=== PATIENT | female | born 1995 | race Caucasian/White ===

== ENCOUNTER 2016-10-15 21:13 | Observation (INO) ==
[2016-10-15 21:50] LABS: Bilirubin,Urine Negative (Negative); Blood,Urine Trace (Negative); Clarity,Urine Cloudy (Clear); Color,Urine Yellow (Yellow); Glucose,Urine (UA) Normal (Normal); Ketones,Urine Negative (Negative); Leukocyte Esterase,Urine Small (Negative); Nitrite,Urine Negative (Negative); Protein,Urine Negative (Neg-Trace); Specific Gravity,Urine 1.015 (1.010-1.025); Urobilinogen,Urine Normal (Normal)
[2016-10-15 22:06] LABS: Bacteria,Urine Moderate per hpf (None-Few); Hyaline Casts,Urine None Seen per lpf (None-Few); RBC,Urine 0-3 per hpf (0-3); Squamous Epithelial Cell,Urine Many per lpf (None-Few)
--- NOTE | 2016-10-15 22:09 | OB/GYN Progress Note ---
Date of Encounter: 10/16/16 Time of Encounter: 21:58 - Assessment and Plan (1) Abdominal cramping, generalized Status: Acute Patient's cramping and back pain likely related to multiparity and current twin gestation. We will check the following: Vaginosis panel fibronectin unable to be obtained d/t cercical length US 2 days prior ( 2.5cm) Urinalysis Subjective - Subjective Principal diagnosis: Abdominal Cramping Interval history: , 1, 3 (1 set of twins, 1 miscarriage, 1 [place]) currently at 29 weeks gestation with another set of twins presents to labor and delivery with complaint of abdominal cramping and low back pain that started earlier today. Patient states she has also been having "cervical pain" and a clear mucousy vaginal discharge since yesterday. She denies vaginal bleeding. Her cramping and back pain comes and goes and she has not taken anything for it. She denies fever. She states that her current has been without complications although she does state that she recently finished a course of metronidazole about 2 weeks ago for a vaginal infection. She is taking a vitamin and vitamin B12 and denies taking other medications during this . I examined this patient and my medical decision-making was reviewed with the ROAD TESTER/PA/Advanced Practice Nurse/Resident Physician. I agree with the documented findings, disposition and treatment plan as described except to the extent set forth below. Objective - Vital Signs Vital Signs: Intake and Output 10/15/16 10/15/16 10/15/16 07:59 15:59 23:59 Other: Weight 78.8 kg Patient Weight 10/15/16 23:59 Weight 78.8 kg - Exam FHR: category 1 (x2) FHR comments: 130s baseline x2 Auscultation: bilateral: normal Abdomen: Present: gravid, tenderness (Suprapubic tenderness. Patient's heart rate is regular, no murmurs, rubs or gallops)
[2016-10-15 22:55] LABS: Candida DNA ***DETECTED*** (Not Detect); Gardnerella DNA Not Detected (Not Detect); Trichomonas DNA Not Detected (Not Detect)
[2016-10-16] MEDS ORDERED: Nitrofurantoin (BID) 100 MG CAPSULE PO SCH (08:00)
[2016-10-16] MEDS ORDERED: METRONIDAZOLE 500 MG PO SCH (09:00)
[2016-10-16] MEDS ORDERED: PRENATAL PO SCH (09:00)
[2016-10-16] MEDS ORDERED: DHA PO SCH (09:00)
[2016-10-16] MEDS ORDERED: [UNRECOGNIZED DRUG - OTHER] PO SCH (09:00)
[2016-10-16] MEDS ORDERED: DSS PO SCH (09:00)
[2016-10-16] MEDS ORDERED: IRON PO SCH (09:00)
[2016-10-16] MEDS ORDERED: Terconazole Vag SUPP 80 MG SUPP.VAG VG SCH (21:00)
== END 2016-10-15 23:37 | disposition home or self-care (01) ==
LOC: 1NENULAB
PROVIDERS: ADMIT Obstetrics & Gynecology; ATTEND Obstetrics & Gynecology

== ENCOUNTER 2016-10-31 21:40 | Observation (INO) ==
--- NOTE | 2016-10-31 22:35 | OB/GYN Progress Note ---
Date of Encounter: 10/31/16 Time of Encounter: 22:32 - Assessment and Plan (1) 31 weeks gestation of Current Visit: Yes Status: Acute Pt presents with c/o decreased movement at home. Now with active movement x 2 and RNST x 2. (2) Twin gestation in third trimester Current Visit: Yes Status: Acute Qualifiers: Multiple gestation type: dichorionic and diamniotic Qualified Code(s): O30.043 - Twin , dichorionic/diamniotic, third trimester Subjective - Subjective Principal diagnosis: twins, decreased movement Interval history: 21yo female with twins at 31w6d gestation presents with decreased movement. No UC's, No VB or LOF. Now on L&D she is doing much better. Objective - Vital Signs Vital Signs: Intake and Output 10/31/16 10/31/16 10/31/16 07:59 15:59 23:59 Other: Weight 80.6 kg Patient Weight 10/31/16 23:59 Weight 80.6 kg - Exam FHR: category 1, other (x 2)
== END 2016-10-31 22:36 | disposition home or self-care (01) ==
LOC: 1NENULAB
PROVIDERS: ADMIT Obstetrics & Gynecology; ATTEND Obstetrics & Gynecology

== ENCOUNTER 2016-11-22 10:56 | Observation (INO) ==
[2016-11-22 12:18] LABS: Bilirubin,Urine Negative (Negative); Blood,Urine Negative (Negative); Clarity,Urine Cloudy (Clear); Color,Urine Yellow (Yellow); Glucose,Urine (UA) Normal (Normal); Ketones,Urine Negative (Negative); Leukocyte Esterase,Urine Large (Negative); Nitrite,Urine Negative (Negative); PH,Urine 6.5 pH Units (5.0-8.0); Protein,Urine Negative (Neg-Trace); Specific Gravity,Urine 1.005 (1.010-1.025); Urobilinogen,Urine Normal (Normal)
[2016-11-22 12:20] LABS: Bacteria,Urine Many per hpf (None-Few); Hyaline Casts,Urine None Seen per lpf (None-Few); RBC,Urine 0-3 per hpf (0-3); Squamous Epithelial Cell,Urine Many per lpf (None-Few); WBC,Urine 30-50 per hpf (0-3)
[2016-11-22] MEDS ORDERED: RINGERS LACTATED IVC PRN (13:14)
[2016-11-22] MEDS ORDERED: Ringers Solution, Lactated 1,000 ML ONE (13:14)
[2016-11-22 13:36] LABS: Basophils # 0.1 K/mcL (0.0-0.2); Basophils % 0.4 %; Eosinophils # 0.2 K/mcL (0.0-0.6); Eosinophils % 0.9 %; Hematocrit 33.3 % (35.3-44.9); Hemoglobin 11.1 g/dL (11.5-15.4); Immature Granulocytes % 1.6 % (0-4); Lymphocytes # 2.9 K/mcL (0.6-4.6); Lymphocytes % 17.1 %; Mean Corpuscular HGB Conc 33.3 g/dL (31.6-35.5); Mean Corpuscular Hemoglobin 27.1 pg (28.0-33.3); Mean Corpuscular Volume 81.2 fL (83.0-100.0); Mean Platelet Volume 13.6 fL (9.4-12.4); Monocytes # 1.1 K/mcL (0.0-1.3); Monocytes % 6.6 %; Neutrophils # 12.5 K/mcL (1.6-8.9); Platelet Count 207 K/mcL (140-400); Red Cell Distribution Width 13.9 % (11.5-14.5); Segmented Neutrophils % 73.4 %
--- NOTE | 2016-11-22 14:46 | OB/GYN Progress Note ---
Date of Encounter: 11/22/16 Time of Encounter: 14:45 - Assessment and Plan (1) and not yet delivered in third trimester Current Visit: Yes Status: Acute (2) 35 weeks gestation of Current Visit: Yes Status: Acute (3) Candidiasis of female genitalia Current Visit: Yes Status: Acute We will discharge patient home with prescription for terconazole 7 (4) Twin gestation in third trimester Current Visit: No Status: Acute Qualifiers: Multiple gestation type: dichorionic and diamniotic Qualified Code(s): O30.043 - Twin , dichorionic/diamniotic, third trimester (5) labor in third trimester without delivery Current Visit: Yes Status: Acute Labor precautions given Subjective - Subjective Interval history: Patient is a 21-year-old 4 para 2013 at 35-0/7 weeks twin gestation who presented to labor and delivery complaining of cramping low abdominal pressure and possible ruptured membranes. Patient states that approximately 9:30 this morning she started having intense cramping and lower abdominal discomfort. The patient states that when she got here she had some gushes of fluid 1 so she was ruptured. Patient did have speculum exam and she was nitrazine ferning pooling all negative did have thick white discharge positive for candidiasis on wet mount. The patient was nidia every 2-3 minutes and was 2-3 cm. We did observe the patient after now reexamined the patient and she appeared to changed her cervix to 3 cm. we gave an IV bolus and patient's discomfort improved and she was not having intense back pain and pressure at that she was was having. Patient was feeling better and being only 35 weeks I could not justify keeping her and we will discharge home we will send patient home with a prescription for terconazole 7 and she already has an appointment on Thursday. Labor precautions were given. Objective - Vital Signs Vital Signs: Intake and Output 11/21/16 11/22/16 11/22/16 23:59 07:59 15:59 Other: Weight 81.1 kg Patient Weight 11/22/16 23:59 Weight 81.1 kg - Exam FHR: category 1 FHR comments: heart tones 140s reactive both twin A and twin B occasional contractions seen after IV bolus Abdomen: Present: gravid Uterus: Present: firm Cervical dilation: 2-3 Cervix effacement: 80 station: 0 Comments: Sterile speculum exam revealed nitrazine ferning negative pooling did have a thick white discharge positive for candidiasis on wet mount. Bedside ultrasound did reveal both twin A and B in vertex presentation - Labs Labs: Abnormal lab results WBC 17.1 K/mcL (4.3-11.1) H 11/22/16 13:25 Hgb 11.1 g/dL (11.5-15.4) L 11/22/16 13:25 Hct 33.3 % (35.3-44.9) L 11/22/16 13:25 MCV 81.2 fL (83.0-100.0) L 11/22/16 13:25 MCH 27.1 pg (28.0-33.3) L 11/22/16 13:25 MPV 13.6 fL (9.4-12.4) H 11/22/16 13:25 Neutrophils # 12.5 K/mcL (1.6-8.9) H 11/22/16 13:25 Urine Clarity Cloudy (Clear) A 11/22/16 12:05 Ur Specific [place] 1.005 (1.010-1.025) L 11/22/16 12:05 Ur Leukocyte Esterase Large (Negative) H 11/22/16 12:05 Urine Microscopic WBC 30-50 per hpf (0-3) H 11/22/16 12:05 Ur Squamous Epith Cells Many per lpf (None-Few) H 11/22/16 12:05 Urine Bacteria Many per hpf (None-Few) H 11/22/16 12:05 Ur Culture Indicated? YES (NO) A 11/22/16 12:05
== END 2016-11-22 14:54 | disposition home or self-care (01) ==
LOC: 1NENULAB
PROVIDERS: ADMIT Obstetrics & Gynecology; ATTEND Obstetrics & Gynecology

== ENCOUNTER 2016-11-24 10:40 | Inpatient (IN) ==
[2016-11-24] MEDS ORDERED: Ringers Solution, Lactated 1,000 ML IVC SCH (11:45)
[2016-11-24 11:46] LABS: Basophils # 0.1 K/mcL (0.0-0.2); Basophils % 0.4 %; Eosinophils # 0.2 K/mcL (0.0-0.6); Hematocrit 33.2 % (35.3-44.9); Immature Granulocytes % 1.7 % (0-4); Lymphocytes # 2.6 K/mcL (0.6-4.6); Lymphocytes % 16.2 %; Mean Corpuscular HGB Conc 33.1 g/dL (31.6-35.5); Mean Corpuscular Hemoglobin 26.8 pg (28.0-33.3); Mean Platelet Volume 13.8 fL (9.4-12.4); Monocytes # 1.2 K/mcL (0.0-1.3); Monocytes % 7.6 %; Neutrophils # 11.9 K/mcL (1.6-8.9); Platelet Count 219 K/mcL (140-400); Segmented Neutrophils % 73.1 %
[2016-11-24] MEDS ORDERED: Ringers Solution, Lactated 1,000 ML ONE (11:55)
--- NOTE | 2016-11-24 13:10 | OB/GYN History & Physical ---
Date of Encounter: 11/24/16 Time of Encounter: 12:57 Assessment and Plan (1) Decreased movement Current visit: Yes Status: Acute monitoring with plan of possible delivery if tracing does not improve. (2) 35 weeks gestation of Current visit: No Status: Acute (3) Twin gestation in third trimester Current visit: No Status: Acute Qualifiers: Multiple gestation type: dichorionic and diamniotic Qualified Code(s): O30.043 - Twin , dichorionic/diamniotic, third trimester History of Present Illness Chief complaint: decreased movement HPI: Ms. Deutsch is a 21 year old female current twin here for decreased movement with low baseline of baby A. Pt states baby B is moving well, denies vaginal bleeding or leaking of fluid on admission. LABS: O+, Rubella immune, GBS negative, serologies negative. Past Med Surg Social Fam HX - Past Medical History Source: patient Medical history: no medical history Psychiatric history: no psych history - Past Surgical History Surgical History: other (wisdom teeth ) - Social History Smoking Status: Current every day smoker Packs per day: 1/2 PPD Smokeless Tobacco Status: No Alcohol use: none Drug use: none Current living situation: Home - Independent Activity Level: Independent ambulation - Family History Mother Adopted: No Family Member Ethnicity: Non- Living Status: Still Living Hx Family Cardiac Disorders: Yes Hx Family Respiratory Disorders: Yes Hx Family Cancer: No Hx Family GI Disorders: No Hx Family Endocrine Disorder: No Hx Family Neuromuscular Disorders: No Hx Family Neurologic Disorders: No Hx Family HEENT Disorders: No Hx Family Autoimmune Disorders: No Obstetrical History - Pregnancies : 4 Para: 3 Term: 3 : 0 Ab's: 1 Livin - History/Complications History/Complications: 1- Twin F/F 37 week 2-AB 3- 37 week female 4 current twin Medications and Allergies #57/Iron/FA/Dss/Dha 1 tab PO DAILY 04/15/15 [History] Vitamin B-12 1 tab PO DAILY 10/15/16 [History] Terconazole [Terazol 7] 45 gm VG DAILY #1 cream.appl 11/22/16 [Rx] Allergies No Known Drug Allergies Allergy (Verified 05/27/16 13:33) none Review of System OB All systems PM: reviewed and no additional remarkable complaints except as stated Exam - Constitutional Constitutional: well developed, well nourished, no acute distress - Lungs Respiratory exam: CTAB - Cardiovascular Cardiovascular exam: RRR, +S1, +S2 - Abdomen Abdomen: Present: gravid, non tender - Extremities Extremities exam: normal inspection - Uterus Uterus exam: Present: normal size Results Result Diagrams: 11/24/16 11:36 Abnormal lab results WBC 16.3 K/mcL (4.3-11.1) H 11/24/16 11:36 Hgb 11.0 g/dL (11.5-15.4) L 11/24/16 11:36 Hct 33.2 % (35.3-44.9) L 11/24/16 11:36 MCV 81.0 fL (83.0-100.0) L 11/24/16 11:36 MCH 26.8 pg (28.0-33.3) L 11/24/16 11:36 MPV 13.8 fL (9.4-12.4) H 11/24/16 11:36 Neutrophils # 11.9 K/mcL (1.6-8.9) H 11/24/16 11:36 All other labs normal. - VTE Reasons for not Prescribing Prophylaxis: Treatment not Indicated - Low risk for VTE
--- NOTE | 2016-11-24 14:23 | OB Labor Progress Note ---
Date of Encounter: 11/24/16 Time of Encounter: 14:25 Labor Progress Note - Subjective Subjective: Patient states contractions getting more uncomfortable still not feeling A move that much. - Cervix Cervix: 4/90/0 - Heart Tones Heart Tones: heart tones 110 to 115 both twin A and twin B variability is still good at this time. - [place]: contractions every 2-3 minutes - Plan Plan: We will admit the patient and anticipate vaginal delivery
[2016-11-24] MEDS ORDERED: *HR* FentaNYL (PF) 100 MCG/2 ML VIAL EP ONE (14:34)
[2016-11-24] MEDS ORDERED: EPHEDrine 50 MG/ML VIAL IVP PRN (14:34)
[2016-11-24] MEDS ORDERED: *HR* Ropivacaine/PF 0.2% 10 ML AMPUL EP ONE (14:34)
--- NOTE | 2016-11-24 14:34 | Anesthesia Evaluation PreOp ---
Date of Encounter: 11/24/16 Time of Encounter: 14:20 - Past History Planned Operation: Labor Epidural Cardiac History: Denies any Significant Hx Pulmonary History: Smoker (0.5PPD) KARATE INSTRUCTOR History: Denies Any Significant HX Other Medical History: Denies Any Significant HX Anesthesia History: No Prior Anesthetic Complications, Past Anesthesia ( Epidurals, [place] teeth) : Yes Alcohol Use: none Drug use: none Medications and Allergies #57/Iron/FA/Dss/Dha 1 tab PO DAILY 04/15/15 [History] Vitamin B-12 1 tab PO DAILY 10/15/16 [History] Terconazole [Terazol 7] 45 gm VG DAILY #1 cream.appl 11/22/16 [Rx] Allergies No Known Drug Allergies Allergy (Verified 05/27/16 13:33) none - Meds/Allergy Pre-op Review Medications Reviewed: Yes Allergies Reviewed: Yes Beta Blockers on Current Med List: No Anesthesia Results - Labs 11/24/16 11:36 Anesthesia Exam Height: 1.63m Weight: 81.5kg NPO (# of Hours): >4hr solids Pain Scale: 7 Pain Scale Used: Numeric (1 - 10) - HEENT Pupil (Motor): Pupils equal Mallampati: II Teeth: Normal Oral Opening: Greater than 3 - KARATE INSTRUCTOR LOC: Oriented KARATE INSTRUCTOR Motor: Normal RUE, Normal LUE, Normal RLE, Normal LLE, Normal Face KARATE INSTRUCTOR Sensory: Normal: RUE, LUE, RLE, LLE, Face - Cardiac Rhythm: Regular Murmur: None JVD: No Carotid Bruit: No - Pulmonary Breath Sounds: bilateral Clear Respiratory Effort: Symmetrical Anesthesia Assess/Plan ASA Score: 2 Modified Tj Scale for Level of Consciousness: Cooperative, oriented, and tranquil Anesthetic Plan: Regional Autologous Blood: Yes Monitoring Plan: Standard Monitors Recovery Plan: Other
[2016-11-24] MEDS ORDERED: Epidural Premix (fent/bupiv) 110 ML EP SCH (14:45)
--- NOTE | 2016-11-24 19:07 | OB Labor Progress Note ---
Date of Encounter: 11/24/16 Time of Encounter: 19:00 Labor Progress Note - Subjective Subjective: Patient states contractions getting more uncomfortable baby still moving. - Cervix Cervix: 6/90/+1 - Heart Tones Heart Tones: Heart tones 110s to 120s reactive for both twin A and twin B AROM clear - [place]: Contractions every 2 minutes - Plan Plan: 1. Patient had an epidural and anticipate normal spontaneous vaginal delivery
[2016-11-24] MEDS ORDERED: *HR* Ropivacaine/PF 0.2% 10 ML AMPUL ONE (19:43)
[2016-11-24] MEDS ORDERED: *HR* FentaNYL (PF) 100 MCG/2 ML VIAL ONE (19:43)
[2016-11-24] MEDS ORDERED: Epidural Premix (fent/bupiv) 110 ML EP ONE (19:44)
--- NOTE | 2016-11-24 20:08 | Anesthesia Procedures ---
Date of Encounter: 11/24/16 Time of Encounter: 19:48 Procedures: Anesthesia - Epidural/Spinal Patient ID/Chart reviewed: Yes Patient examined: Yes OB Eval: Gestational age: 35.2 OB Eval: : 4 OB Eval: Hx Para: 3 OB Eval: Contractions: Non-stressed pattern Consent Obtained: Yes Supplemental Oxygen: None/Room Air Site Prep: Aseptic Technique, Sterile prep and drape, 0.5% Chlorhexidine/Alcohol Patient position: upright Local Anesthetic: Lidocaine 1% Amount of Local Anesthetic used: 3 Touhy Needle Gauge: 18 Touhy Needle Depth (cm): 8 Catheter Depth at Skin (cm): 13 Test Dose (1.5% Lido + Epi): Volume given (mls): 4 Test Dose Result: Negative Loading Dose: Fentanyl (mcg): 100 Loading Dose: Other: Ropivacaine 0.2% 10mL Loading Dose Administered: Thru Catheter Infusion Med: 0.125% Bupivacaine w/ 2 mcg/ml Fentanyl Infusion Rate (mls/hr): 14 (Bolus 4mL q15min; Max 3/hr) Catheter Secured in Place: Tegaderm, Tape Interspace Used: L2-L3 Loss of Resistance (ANTHONY): Yes Blood: No CSF: No Paresthesia: No Procedure: x1 attempt. Patient tolerated well and reported increased comfort within 2 contractions of bolus dose. Vitals + FHT's: VSS. FHR stable x2 throughout procedure. See nursing documentation.
[2016-11-24] MEDS ORDERED: Oxytocin 20 units/ LR 1000 mL 20 UNIT/1,000 ML BAG IVC SCH (20:15)
--- NOTE | 2016-11-24 20:17 | OB Labor Progress Note ---
Date of Encounter: 11/24/16 Time of Encounter: 20:15 Labor Progress Note - Subjective Subjective: Patient feels much more comfortable after her epidural no longer feeling the contractions - Cervix Cervix: 6/90/+1 - Heart Tones Heart Tones: heart tones 110-120 reactive both twin A and twin B - [place]: Contractions every 2-4 minutes irregular - Plan Plan: We will augment with Pitocin and anticipate vaginal delivery
--- NOTE | 2016-11-24 23:43 | OB/GYN Procedure Note ---
Delivery - Delivery Date: 11/24/16 Provider: Can Kramer Delivery augmentation: rupture of membranes, pitocin Delivery monitor: external FHT, external uterine Anesthesia: epidural Estimated Blood Loss: 200 - (s) Infant A Infant Delivery Date: 11/24/16 Infant Delivery Time: 22:57 Presentation: vertex Position: OA Route of delivery: Gender: Male Viability: Viable Pounds: 5 Ounces: 8 Weight Gram: 2430 kg at 1 minute: 5 at 5 mins: 8 Shoulder Dystocia: not encountered Specimens collected: cord blood Placenta: spontaneous Cord: nuchal cord, 3 umbilical vessels, nuchal cut Infant B Delivery Date: 11/24/16 Delivery Time: 23:09 Presentation: footling breech Route of delivery: breech extraction Gender: Female Viability: Viable Pounds: 5 Ounces: 4 Weight Gram: 2.38 kg at 1 minute: 5 at 5 mins: 8 Shoulder Dystocia: not encountered Specimens collected: cord blood Cord: 3 umbilical vessels - Repair Episiotomy: none Laceration Description: None - Complications Delivery complications: none - Disposition Mom disposition: stable in LDR disposition: stable in LDR - Comments Comments: Patient is a 21-year-old 4 para 2013 at 35-2/7 weeks who presented to labor and delivery from the office due to contractions cervical change and low baseline. Patient is scheduled for an ultrasound in the office this morning but was complaining of contractions. She was examined and was noted to be 2-3 cm similar to what she was 2 days ago. We did do a pelvic ultrasound on her and then placed on the NST. Patient was having occasional contractions but she was complaining of increasing intensity. When we reexamined her she was now a good 3-4 cm. Patient's babies were running in the 110 to 120s for baseline which is lower than what is been answered complaining of decreased movement of twin a. Presented to labor and delivery for prolonged monitoring where she continued to make cervical change. Baseline remains very low the entire time. We decided to admit the patient when she was approximately 6 cm she was artificially ruptured with clear fluid. Patient was not making any additional change after her epidural and she was augmented with Pitocin. When she started getting back to every 2 minutes patient progressed rapidly. She was taken back to the operating room for double set up. The patient was was we get her set up with one push she delivered a viable male infant in occiput anterior presentation at 2257. There was a nuchal cord which was tight and was clamped and cut and was delivered. 's were 5 at 1 minute, 8 at 5 minutes and weight was 5 lbs. 6 oz. The was handed off to waiting pediatric team. We then examined the patient and noted that there baby was now in the breech presentation and was coming down as a footling breech. Patient was insistent that she delivered vaginally so we decided we would do a footling extraction. We allowed the baby to drop once the baby was down in the canal she was artificially ruptured with a scalp lead. At this point the extremities were in the vagina I was able to grab them and we then did a breech extraction. On suspect across the infant's chest and the was fully delivered. The was delivered at 2309. B had Apgars of 5 at 1 minute and 8 at 5 minutes and this infant weighed 5 lbs. 4 oz. Cord blood had been collected placenta was then delivered spontaneously with a three-vessel cord for both twin A and B. Shell Assembler was Dr. Williams Mcgill [id number], anesthesia epidural estimated blood loss was 200 mL. Perineum cervix and vagina was also visualized and intact. Patient tolerated the delivery well she will be observed 2 hours before being taken floor.
[2016-11-24] MEDS ORDERED: Acetaminophen 325 MG TABLET PO ONE (23:51)
[2016-11-25] MEDS ORDERED: Oxytocin 20 units/ LR 1000 mL 20 UNIT/1,000 ML BAG IV SCH (03:24)
[2016-11-25] MEDS ORDERED: Measles/Mumps/Rubella Vacc 0.5 ML VIAL SQ PRN (03:24)
[2016-11-25] MEDS ORDERED: Oxytocin 20 units/ LR 1000 mL 20 UNIT/1,000 ML BAG IVC ONE (03:24)
[2016-11-25 05:40] LABS: Basophils % 0.2 %; Eosinophils # 0.1 K/mcL (0.0-0.6); Eosinophils % 0.6 %; Hematocrit 31.8 % (35.3-44.9); Hemoglobin 10.5 g/dL (11.5-15.4); Lymphocytes # 2.6 K/mcL (0.6-4.6); Lymphocytes % 14.1 %; Mean Corpuscular Hemoglobin 26.7 pg (28.0-33.3); Mean Corpuscular Volume 80.9 fL (83.0-100.0); Mean Platelet Volume 13.7 fL (9.4-12.4); Monocytes # 1.3 K/mcL (0.0-1.3); Monocytes % 6.9 %; Neutrophils # 14.2 K/mcL (1.6-8.9); Platelet Count 186 K/mcL (140-400); Red Blood Count 3.93 M/mcL (3.82-4.97); Red Cell Distribution Width 13.8 % (11.5-14.5); Segmented Neutrophils % 77.2 %
--- NOTE | 2016-11-25 07:22 | OB/GYN Progress Note ---
Date of Encounter: 11/25/16 Time of Encounter: 07:20 - Assessment and Plan (1) Decreased movement Current Visit: Yes Status: Acute monitoring with plan of possible delivery if tracing does not improve. (2) 35 weeks gestation of Current Visit: No Status: Acute (3) Twin gestation in third trimester Current Visit: No Status: Acute Qualifiers: Multiple gestation type: dichorionic and diamniotic Qualified Code(s): O30.043 - Twin , dichorionic/diamniotic, third trimester (4) Vaginal delivery Current Visit: Yes Status: Acute Pt doing well. Stable. Continue current management. anticipate discharge tomorrow. Subjective - Subjective Interval history: Pt states feels well, pain well managed. Patient reports: appetite normal, voiding normally, pain well controlled [place]: doing well Objective - Latest Vital Signs Latest vital signs: Vital Signs Temp Pulse Pulse Resp BP Pulse Ox 11/25/16 05:00 97.8 F 85 85 16 113/66 96 11/25/16 03:35 97.8 F 87 14 99/55 96 11/25/16 02:35 98.1 F 73 14 108/64 96 Intake and Output 11/24/16 11/24/16 11/25/16 15:59 23:59 07:59 Intake Total 800 / 800 Output Total 150 / 150 Balance 650 / 650 Intake: Oral 800 / 800 Output: Urine 150 / 150 Other: Meal snack given Weight 81.465 kg 76.3 kg Patient Weight 11/25/16 23:59 Weight 76.3 kg - Exam Lungs: bilateral: normal Chest: Normal S1, Normal S2 Extremities: Present: normal Abdomen: Present: normal appearance, soft Uterus: Present: firm - Labs Labs: Laboratory Results - last 24 hr 11/24/16 11/25/16 11:36 05:15 WBC 16.3 H 18.4 H RBC 4.10 3.93 Hgb 11.0 L 10.5 L Hct 33.2 L 31.8 L MCV 81.0 L 80.9 L MCH 26.8 L 26.7 L MCHC 33.1 33.0 RDW 14.0 13.8 Plt Count 219 186 MPV 13.8 H 13.7 H Immature Gran % 1.7 1.0 Seg Neutrophils % 73.1 77.2 Lymphocytes % 16.2 14.1 Monocytes % 7.6 6.9 Eosinophils % 1.0 0.6 Basophils % 0.4 0.2 Neutrophils # 11.9 H 14.2 H Lymphocytes # 2.6 2.6 Monocytes # 1.2 1.3 Eosinophils # 0.2 0.1 Basophils # 0.1 0.0
[2016-11-25] MEDS: Prenatal Vit/FA 1 EACH TABLET PO SCH (09:57)
[2016-11-25] MEDS: MOM Conc 10 ML UD.LIQ PO PRN (16:56)
[2016-11-25] MEDS: Acetaminophen 325 MG TABLET PO PRN (20:05)
[2016-11-26] MEDS: Acetaminophen 325 MG TABLET PO PRN (04:59)
[2016-11-26] MEDS: Prenatal Vit/FA 1 EACH TABLET PO SCH (08:16)
--- NOTE | 2016-11-26 09:42 | Discharge Summary ---
Date of Encounter: 11/26/16 Time of Encounter: 09:39 - Discharge Diagnosis (1) Decreased movement Priority: Secondary Status: Acute (2) 35 weeks gestation of Priority: Secondary Status: Acute (3) Twin gestation in third trimester Priority: Secondary Status: Acute Qualifiers: Multiple gestation type: dichorionic and diamniotic Qualified Code(s): O30.043 - Twin , dichorionic/diamniotic, third trimester (4) Vaginal delivery Priority: Primary Status: Acute Comments: Pt states feels well.meeting all milestones +flatus -BM. desires discharge today. - Discharge Medications Prescriptions: Breast Pump [BREAST PUMP] 1 each .ROUTE AD #1 each Docusate [Colace] 100 mg PO BID #60 capsule Home Medications: #57/Iron/FA/Dss/Dha 1 tab PO DAILY 04/15/15 [History] Vitamin B-12 1 tab PO DAILY 10/15/16 [History] Acetaminophen [Tylenol] 650 mg PO Q6HR PRN #0 tablet 11/26/16 [Rx] Breast Pump [BREAST PUMP] 1 each .ROUTE AD #1 each 11/26/16 [Rx] Docusate [Colace] 100 mg PO BID #60 capsule 11/26/16 [Rx] MOM Conc [MILK OF MAGNESIA conc] 10 ml PO DAILY PRN #0 ud.liq 11/26/16 [Rx] Allergies/Adverse Reactions: Allergies No Known Drug Allergies Allergy (Verified 05/27/16 13:33) none Data Procedures and tests throughout hospitalization: Laboratory Tests 11/24/16 11/25/16 11:36 05:15 WBC 16.3 H 18.4 H RBC 4.10 3.93 Hgb 11.0 L 10.5 L Hct 33.2 L 31.8 L MCV 81.0 L 80.9 L MCH 26.8 L 26.7 L MCHC 33.1 33.0 RDW 14.0 13.8 Plt Count 219 186 MPV 13.8 H 13.7 H Immature Gran % 1.7 1.0 Seg Neutrophils % 73.1 77.2 Lymphocytes % 16.2 14.1 Monocytes % 7.6 6.9 Eosinophils % 1.0 0.6 Basophils % 0.4 0.2 Neutrophils # 11.9 H 14.2 H Lymphocytes # 2.6 2.6 Monocytes # 1.2 1.3 Eosinophils # 0.2 0.1 Basophils # 0.1 0.0 Date of admission: 11/24/16 10:40 Primary care physician: PCP NO Consults: 11/25/16 03:24 Consult to Regional Director Of Admissions [CONS] Routine Comment: Vaginal delivery, consult needed Discharging clinician: Armida Valderrama Anticipated date of discharge: 11/26/16 - Patient Status Disposition: Home, Self-Care Condition: Good Functional capacity at discharge: independent ambulation Overall status at discharge: patient is back to baseline - Discharge Instructions Follow Up With: Can Kramer DO [Partnered Physician] - (December 24, 2016 @ 2:30 pm) NO,PCP [Primary Care Provider] - - Diet and Activity Activity: resume usual activities as tolerated Diet: regular diet Hospital Course Reason for admission: induction of labor Delivery: Episiotomy: none Laceration: none complications: none Discharge diagnosis: delivery baby: twins Hospital course: Delivery - Delivery Date: 11/24/16 Provider: Can Kramer Delivery augmentation: rupture of membranes, pitocin Delivery monitor: external FHT, external uterine Anesthesia: epidural Estimated Blood Loss: 200 - (s) Infant A Infant Delivery Date: 11/24/16 Delivery Time: 22:57 Presentation: vertex Position: OA Route of delivery: Gender: Male Viability: Viable Pounds: 5 Ounces: 8 Weight Gram: 2430 kg at 1 minute: 5 at 5 mins: 8 Shoulder Dystocia: not encountered Specimens collected: cord blood Placenta: spontaneous Cord: nuchal cord, 3 umbilical vessels, nuchal cut B Delivery Date: 11/24/16 Delivery Time: 23:09 Presentation: footling breech Route of delivery: breech extraction Gender: Female Viability: Viable Pounds: 5 Ounces: 4 Weight Gram: 2.38 kg at 1 minute: 5 at 5 mins: 8 Shoulder Dystocia: not encountered Specimens collected: cord blood Cord: 3 umbilical vessels - Repair Episiotomy: none Laceration Description: None - Complications Delivery complications: none - Disposition Mom disposition: stable in PP. Meeting all milestones, appropriate for discharge - Comments Comments: Patient is a 21-year-old 4 para 2014 at 35-2/7 weeks who presented to labor and delivery from the office due to contractions cervical change and low baseline. Patient is scheduled for an ultrasound in the office this morning but was complaining of contractions. She was examined and was noted to be 2-3 cm similar to what she was 2 days ago. We did do a pelvic ultrasound on her and then placed on the NST. Patient was having occasional contractions but she was complaining of increasing intensity. When we reexamined her she was now a good 3-4 cm. Patient's babies were running in the 110 to 120s for baseline which is lower than what is been answered complaining of decreased movement of twin a. Presented to labor and delivery for prolonged monitoring where she continued to make cervical change. Baseline remains very low the entire time. We decided to admit the patient when she was approximately 6 cm she was artificially ruptured with clear fluid. Patient was not making any additional change after her epidural and she was augmented with Pitocin. When she started getting back to every 2 minutes patient progressed rapidly. She was taken back to the operating room for double set up. The patient was was we get her set up with one push she delivered a viable male in occiput anterior presentation at 2257. There was a nuchal cord which was tight and was clamped and cut and was delivered. 's were 5 at 1 minute, 8 at 5 minutes and weight was 5 lbs. 6 oz. The infant was handed off to waiting pediatric team. We then examined the patient and noted that there baby was now in the breech presentation and was coming down as a footling breech. Patient was insistent that she delivered vaginally so we decided we would do a footling extraction. We allowed the baby to drop once the baby was down in the canal she was artificially ruptured with a scalp lead. At this point the extremities were in the vagina I was able to grab them and we then did a breech extraction. On suspect across the 's chest and the infant was fully delivered. The was delivered at 2309. B had Apgars of 5 at 1 minute and 8 at 5 minutes and this weighed 5 lbs. 4 oz. Cord blood had been collected placenta was then delivered spontaneously with a three-vessel cord for both twin A and B. Furnace Fitter was Dr. Kramer assisted living manager Ronaldo Nano [id number], anesthesia epidural estimated blood loss was 200 mL. Perineum cervix and vagina was also visualized and intact. Patient tolerated the delivery well she will be observed 2 hours before being taken floor. Time Attestation: Total time spent providing and/or coordinating discharge services: Time Spent: Less than 30 minutes Exam - Constitutional Vitals: Temp Pulse Resp BP Pulse Ox 97.6 F 81 16 113/60 97 11/25/16 20:00 11/25/16 20:00 11/25/16 20:00 11/25/16 20:00 11/25/16 20:00 General appearance IM: A&O X 3, no acute distress - Respiratory Respiratory exam: Present: CTAB - Cardiovascular Cardiovascular exam IM: Present: RRR, +S1, +S2 - GI/Abdominal GI/Abdominal exam IM: normal bowel sounds, soft - Uterine Tone: Firm - Extremities Exam Extremities exam IM: Present: normal capillary refill, normal inspection - Neurological Exam Neurological exam: normal gait, oriented X3 - Psychiatric Additional comments: reports good mood
[2016-11-26 09:46] VITALS: BP 130/78
[2016-11-26] MEDS: MOM Conc 10 ML UD.LIQ PO PRN (10:00)
== END 2016-11-26 13:40 | disposition home or self-care (01) | DRG 560 ==
LOC: 1NENULAB → 1NENUOBS 11-25 03:14
PROVIDERS: ADMIT Obstetrics & Gynecology; ATTEND Obstetrics & Gynecology